=== PATIENT | male | born 1940 | race Caucasian/White ===

== ENCOUNTER → 2020-03-11 10:29 | Outpatient (CLI) | payer MEDICARE, OTHER, SELFPAY ==
--- NOTE | 2020-03-11 10:35 | DI.MRI.S_ITS ---
PROCEDURE: MR LUMBAR SPINE WO CON INDICATIONS: Spinal stenosis, lumbar region with neurogenic cla TECHNIQUE: Noncontrast sagittal T1 spin echo and T2 fast echo, sagittal STIR, axial T1 and T2 fast spin echo through the lumbar spine. In cases with scoliosis, additional coronal T2 fast spin echo may be performed. COMPARISON: [facility], MR, L-SPINE WITHOUT CONTRAST, 04/12/2016, 7:10. FINDINGS: Image quality: Excellent. Alignment and Curvature: Trace degenerative retrolisthesis of L5 on S1 and anterolisthesis of L3 on L4. Bone Marrow: Marrow is of normal overall signal. No acute vertebral body compression fractures. Spinal Cord: Conus medullaris terminates at the L1-L2 level. Visualized cord demonstrates normal signal and size. Paraspinous Soft Tissues: No paravertebral masses. T12-L1: Mild disc bulge. No canal stenosis or foraminal stenosis. L1-L2: Stable. Mild disc height loss. Mild facet hypertrophy. No canal stenosis or foraminal stenosis. L2-L3: Stable. Moderate disc height loss. Disc bulge. Mild facet and ligament hypertrophy. No canal stenosis. Mild bilateral foraminal stenosis. L3-L4: Moderately severe disc height loss. Disc bulge. A relatively shallow free disc fragment as developed in the right lateral recess just above the level of the disc. This impinges on the right L3 nerve root in the right lateral recess and in the medial aspect of the foramen. The disc fragment measures approximately 7 x 9 mm. Minimal increase in central canal stenosis, mild to moderate. Facet and ligament hypertrophy. Mild bilateral foraminal stenosis. L4-L5: Mild disc height loss. Slight interval increase in disc bulge. Facet and ligament hypertrophy. Slight progression of canal stenosis, mild to moderate. A free disc fragment is now present in the right foramen significantly impinging on the right L4 nerve root in the foramen. The disc fragment measures approximately 6 x 9 mm. L5-S1: Severe disc height loss. Mild central posterior disc protrusion, unchanged, abutting the bilateral S1 nerve roots in the lateral recesses. Moderate right foraminal narrowing and moderate to severe left foraminal narrowing with flattening deformity of the exiting bilateral L5 nerve roots. IMPRESSION: 1. Central canal stenosis has progressed at L3-L4 and L4-L5, now [id number]. 2. At L3-L4, a free disc fragment is now present in the right lateral recess just above the disc level. This impinges on the right L3 nerve root in the right lateral recess and in the medial aspect of the foramen. 3. At L4-L5, there is a free disc fragment which has developed in the right foramen. It severely impinges on the right L4 nerve root in the right foramen. 4. Unchanged findings of L5-S1. There is a mild posterior disc protrusion which abuts the bilateral S1 nerve roots in the lateral recesses. There is moderate right foraminal right and [id number] left foraminal narrowing. Dictated by: Avery Dia M.D. on 03/11/2020 at 12:01 Approved by: Avery Dia M.D. on 03/11/2020 at 12:13
== END ==
PROVIDERS: Family Provider Physical Medicine & Rehabilitation Pain Medicine; Referring Provider Physical Medicine & Rehabilitation Pain Medicine; Visit Provider Physical Medicine & Rehabilitation Pain Medicine
DX: M48.062 Spinal stenosis, lumbar region with neurogenic claudication (principal); M51.27 Other intervertebral disc displacement, lumbosacral region
CPT/HCPCS: 72148